=== PATIENT | female | born 1990 | race Caucasian/White ===

== ENCOUNTER 2017-08-28 15:18 | Emergency (ER) | payer OTHER ==
[2017-08-28 18:22] LABS: URINE BLOOD (Dip) POC Negative (NEGATIVE); URINE GLUCOSE (Dip) POC Negative (NEGATIVE); URINE KETONES (Dip) POC Negative (NEGATIVE); URINE LEUKOCYTE EST (Dip) POC Trace (NEGATIVE); URINE NITRITE (Dip) POC Negative (NEGATIVE); URINE TOTAL PROTEIN POC Negative (NEGATIVE)
[2017-08-28 18:22] LABS: URINE PH (Dip) POC 7.5 (5.0-8.5)
== END 2017-08-28 19:05 | disposition home or self-care (01) ==
LOC: FTE 15:18
DX: O20.9 Hemorrhage in early pregnancy, unspecified (principal); O23.11 Infections of bladder in pregnancy, first trimester; Z3A.11 11 weeks gestation of pregnancy
CPT/HCPCS: 76801; 76817; 81003; 99284-25